=== PATIENT | female | born 1955 | race African-American/Black ===

== ENCOUNTER 2017-12-31 17:18 | Emergency (ER) | payer OTHER ==
[2017-12-31 17:25] VITALS: BP 185/89; PULSE 78; TEMP 98.9; BMI 30.9
[2017-12-31] MEDS ORDERED: ACETAMINOPHEN 325 MG TABLET (FP) PO ONE (18:23)
[2017-12-31] MEDS ORDERED: diazePAM 5 MG TABLET PO ONE (18:23)
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
[2017-12-31] MEDS ORDERED: diazePAM 5 MG TABLET ONE (18:44)
[2017-12-31] MEDS ORDERED: ACETAMINOPHEN 500 MG TABLET (FP) ONE (18:44)
--- NOTE | 2017-12-31 19:20 | PDOC ---
*Physical Exam - Vital Signs Last Vital Signs Temp Pulse Resp BP Pulse Ox 98.9 F 78 18 185/89 100 12/31/17 17:18 12/31/17 17:18 12/31/17 17:18 12/31/17 17:18 12/31/17 17:18 ED Treatment Course - Medications Given in the ED: ED Medications Discontinued Medications Generic Name Dose Route Start Last Admin Trade Name Freq PRN Reason Stop Dose Admin Acetaminophen 1,000 mg 12/31/17 18:23 12/31/17 18:46 Tylenol - PO 12/31/17 18:24 1,000 mg ONCE ONE Administration Diazepam 5 mg 12/31/17 18:23 12/31/17 18:46 Valium - PO 12/31/17 18:24 5 mg ONCE ONE Administration Progress Note - Progress Note Progress Note: Care of this patient received from . Noncontrast head CT and cervical spine CT performed. Noncontrast head CT shows no evidence of intracranial pathology or skull fracture. Cervical spine CT reveals no evidence of cervical spine fracture. However, there is a 4 cm by 2 cm mass posterior to the right thyroid gland, either consistent with thyroid nodule or other acute pathology. Results discussed with the patient. She recalls being told of a thyroid issue in the past; she does not recall other recent imaging study. She is been strongly advised to follow-up with her PMD, Dr. Thomas within the next 5-7 days. Meanwhile, she should avoid strenuous activity involving upper body exertion. Diclofenac 75 mg twice a day to be used as needed (taken with food) prescribed as well as Flexeril 10 mg up to twice a day as needed for muscle spasm. Soft collar will also be provided to be used as needed. *DC/Admit/Observation/Transfer Diagnosis at time of Disposition: Cervical muscle strain Qualifiers: Encounter type: initial encounter Qualified Code(s): S16.1XXA - Strain of muscle, fascia and tendon at neck level, initial encounter - Discharge Dispostion Disposition: HOME Condition at time of disposition: Stable - Prescriptions Prescriptions: Cyclobenzaprine HCl [Flexeril 10 mg] 10 mg PO BID PRN #10 tablet PRN Reason: Muscle Spasms Diclofenac Sodium [Voltaren -] 75 mg PO BID PRN #20 tablet.dr DELVALLE Reason: Moderate Pain - Referrals Referrals: Lobo Thomas MD [Primary Care Provider] - 1 week - Patient Instructions Printed Discharge Instructions: DI for Whiplash Additional Instructions: rest; avoid strenuous activity for the next few days Diclofenac 75mg twice a day as needed for pain(take with food) Flexeril 10mg up to twice a day for muscle spasms; this will make you sleepy Return to ER if you have severe pain or weakness Followup with Dr Thomas within 1 week - Post Discharge Activity
== END 2017-12-31 21:12 | disposition home or self-care (01) ==
LOC: FER 17:18
DX: S16.1XXA Strain of muscle, fascia and tendon at neck level, initial encounter (principal); V43.52XA Car driver injured in collision with other type car in traffic accident, initial encounter; Y93.89 Activity, other specified; Y92.410 Unspecified street and highway as the place of occurrence of the external cause; I10 Essential (primary) hypertension; E11.9 Type 2 diabetes mellitus without complications; E78.5 Hyperlipidemia, unspecified; G89.29 Other chronic pain; M54.5 Low back pain
CPT/HCPCS: 70450-TC; 72125-TC; 99283-25

== ENCOUNTER → 2018-09-16 | Day surgery (SDC) | payer OTHER | LOC: JRADIR 09:37 ==

== ENCOUNTER 2019-03-05 11:25 | Day surgery (SDC) | payer OTHER ==
[2019-03-05 12:15] VITALS: BMI 30.9
[2019-03-05 15:03] VITALS: BP 138/76; PULSE 84; TEMP 98.2
== END 2019-03-05 15:03 | disposition home or self-care (01) ==
LOC: FASU-ENDO 11:25
PROVIDERS: ATTEND Internal Medicine Gastroenterology
PROC: 0DJD8ZZ Inspection of Lower Intestinal Tract, Via Natural or Artificial Opening Endoscopic (ICD-10-PCS; principal; 2019-03-05 13:42)
DX: Z12.11 Encounter for screening for malignant neoplasm of colon (principal); K57.30 Diverticulosis of large intestine without perforation or abscess without bleeding; K64.0 First degree hemorrhoids

== ENCOUNTER 2019-04-23 11:51 | Day surgery (SDC) | payer OTHER ==
[2019-04-15 12:35] VITALS: BMI 32.9
[2019-04-23] MEDS ORDERED: PROPOFOL 20 ML ONE ×2 (12:23)
[2019-04-23 13:20] VITALS: TEMP 98.2
[2019-04-23 13:53] VITALS: BP 158/66; PULSE 80
--- NOTE | 2019-04-25 17:02 | PATH ---
Surgical Pathology Report Patient Name: TUSHAR REDD [facility]. Rec. #: [id number] /Age/Gender: 1955 (Age: 63) / F Account: [id number] Location: [facility] Taken: 04/23/2019 Received: 04/23/2019 Reported: 04/25/2019 Physicians: Merle Martin M.D. Specimen(s) Received A: SECOND PORTION DUODENUM B: GASTRIC ANTRUM C: GE JUNCTION Clinical History Abdominal pain, reflux Postoperative diagnosis: Hiatal hernia, gastritis Final Diagnosis A. SECOND PORTION DUODENUM, BIOPSY: DUODENAL MUCOSA WITH NO SIGNIFICANT PATHOLOGIC CHANGE. NO HISTOLOGIC EVIDENCE OF INTRAEPITHELIAL LYMPHOCYTOSIS. B. GASTRIC ANTRUM, BIOPSY: GASTRIC MUCOSA WITH CHRONIC GASTRITIS AND REACTIVE GASTROPATHY. IMMUNOSTAIN IS NEGATIVE FOR H. PYLORI ORGANISMS. NEGATIVE FOR INTESTINAL METAPLASIA. C. GE JUNCTION, BIOPSY: COLUMNAR MUCOSA WITH INTESTINAL METAPLASIA, MAY REPRESENT JORDAN'S ESOPHAGUS IN THE PROPER CLINICAL SETTING. NO SQUAMOUS EPITHELIUM PRESENT. NEGATIVE FOR DYSPLASIA. Electronically Signed Robinson Espinosa M.D. Gross Description A. Received in formalin, labeled "biopsy second portion of duodenum" is a philip, irregular portion of soft tissue measuring 0.4 cm. in greatest dimension. The specimen is submitted in toto in one cassette. B. Received in formalin, labeled "biopsy gastric antrum" are 2 philip, irregular portions of soft tissue measuring 0.3 and 0.4 cm. in greatest dimension. The specimens are submitted in toto in one cassette. C. Received in formalin, labeled "biopsy GE junction" is a philip, irregular portion of soft tissue measuring 0.4 cm. in greatest dimension. The specimen is submitted in toto in one cassette. /04/24/2019 saudi04/24/2019
== END 2019-04-23 14:05 | disposition home or self-care (01) ==
LOC: FASU-ENDO 11:51
PROVIDERS: ATTEND Internal Medicine Gastroenterology
PROC: 0DB68ZX Excision of Stomach, Via Natural or Artificial Opening Endoscopic, Diagnostic (ICD-10-PCS; 2019-04-23)
PROC: 0DB48ZX Excision of Esophagogastric Junction, Via Natural or Artificial Opening Endoscopic, Diagnostic (ICD-10-PCS; 2019-04-23)
PROC: 0DB98ZX Excision of Duodenum, Via Natural or Artificial Opening Endoscopic, Diagnostic (ICD-10-PCS; principal; 2019-04-23 13:00)
DX: K29.50 Unspecified chronic gastritis without bleeding (principal); K31.9 Disease of stomach and duodenum, unspecified; K44.9 Diaphragmatic hernia without obstruction or gangrene; R10.13 Epigastric pain
CPT/HCPCS: 88305-TC; 88342-TC

== ENCOUNTER 2019-06-11 09:18 | Day surgery (SDC) | payer OTHER ==
[2019-06-04 15:04] VITALS: BMI 32.9
[2019-06-11] MEDS ORDERED: PROPOFOL 20 ML ONE ×2 (09:46)
[2019-06-11] MEDS ORDERED: LIDOCAINE HCL/PF 2% SDV 5ML VIAL ONE (09:46)
[2019-06-11 12:07] VITALS: TEMP 98.4
[2019-06-11 16:56] VITALS: BP 123/69; PULSE 91
--- NOTE | 2019-06-13 16:45 | PATH ---
Surgical Pathology Report Patient Name: TUSHAR REDD [facility]. Rec. #: [id number] /Age/Gender: 1955 (Age: 63) / F Account: [id number] Location: [facility] Taken: 06/11/2019 Received: 06/11/2019 Reported: 06/13/2019 Physicians: Merle Martin M.D. Specimen(s) Received A: ANTRUM B: ESOPHAGUS Clinical History History of Hughes's Postoperative diagnosis: Hughes's esophagus, hiatal hernia, gastritis Final Diagnosis A. GASTRIC ANTRUM, BIOPSY: GASTRIC MUCOSA WITH CHRONIC GASTRITIS. IMMUNOSTAIN FOR H. PYLORI IS NEGATIVE. INTESTINAL METAPLASIA IDENTIFIED. NEGATIVE FOR DYSPLASIA. B. ESOPHAGUS, BIOPSY: GLANDULAR MUCOSA WITH CHRONIC INFLAMMATION AND INTESTINAL METAPLASIA. NEGATIVE FOR DYSPLASIA. Comment: No squamous epithelium present. Clinical correlation with endoscopic findings is recommended. Electronically Signed Robinson Espinosa M.D. Gross Description A. Received in formalin, labeled "biopsy gastric antrum" is a philip, irregular portion of soft tissue measuring 0.4 cm. in greatest dimension. The specimen is submitted in toto in one cassette. B. Received in formalin, labeled "biopsy esophagus" are 7 philip, irregular portions of soft tissue ranging from 0.1-0.4 cm. in greatest dimension. The specimens are submitted in toto in one cassette. 06/12/2019 [facility]06/12/2019
== END 2019-06-11 11:55 | disposition home or self-care (01) ==
LOC: FASU-ENDO 09:18
PROVIDERS: ATTEND Internal Medicine Gastroenterology
PROC: 0DB78ZX Excision of Stomach, Pylorus, Via Natural or Artificial Opening Endoscopic, Diagnostic (ICD-10-PCS; 2019-06-11)
PROC: 0DB18ZX Excision of Upper Esophagus, Via Natural or Artificial Opening Endoscopic, Diagnostic (ICD-10-PCS; 2019-06-11)
PROC: 0DB28ZX Excision of Middle Esophagus, Via Natural or Artificial Opening Endoscopic, Diagnostic (ICD-10-PCS; 2019-06-11)
PROC: 0DB38ZX Excision of Lower Esophagus, Via Natural or Artificial Opening Endoscopic, Diagnostic (ICD-10-PCS; 2019-06-11)
PROC: 0DB48ZX Excision of Esophagogastric Junction, Via Natural or Artificial Opening Endoscopic, Diagnostic (ICD-10-PCS; principal; 2019-06-11 10:32)
DX: Z09 Encounter for follow-up examination after completed treatment for conditions other than malignant neoplasm (principal); Z87.19 Personal history of other diseases of the digestive system; K29.50 Unspecified chronic gastritis without bleeding; K44.9 Diaphragmatic hernia without obstruction or gangrene; K20.9 Esophagitis, unspecified
CPT/HCPCS: 88305-TC; 88342-TC

== ENCOUNTER 2024-02-29 11:43 | Observation (INO) | payer OTHER ==
[2024-02-29 11:53] VITALS: RESP 18; BMI 84.6
[2024-02-29 12:46] LABS: HEMOGLOBIN 13.9 G/dL (10.7-15.3); MCH 29.7 pg (25.7-33.7); MCHC 33.8 g/dl (32.0-36.0); MEAN CELL VOLUME 87.9 fl (80-96); MEAN PLT VOLUME 7.9 fl (7.5-11.1); PLATELET COUNT 305.1 10^3/uL (134-434); RBC 4.67 10^6/uL (3.60-5.2); RDW 13.8 % (11.6-15.6); WHITE BLOOD COUNT 5.7 10^3/uL (4.0-10.8)
[2024-02-29 13:09] LABS: ALBUMIN 4.4 g/dl (3.4-5.0); BILIRUBIN,TOTAL 0.4 mg/dl (0.2-1); CALCIUM 10.6 mg/dl (8.5-10.1); CREATININE 0.7 mg/dl (0.6-1.3); POTASSIUM 3.5 mmol/L (3.5-5.1); TOT PROT 7.3 g/dl (6.4-8.2)
[2024-02-29 13:35] LABS: PLATELET ESTIMATE ADEQUATE
[2024-02-29 15:52] LABS: HIV INTERPRETATION NEGATIVE (NEGATIVE)
[2024-02-29] MEDS ORDERED: ACETAMINOPHEN 325 MG TABLET (FP) PO PRN (18:24)
[2024-02-29] MEDS: FAMOTIDINE 20 MG TABLET PO SCH (21:32)
[2024-02-29] MEDS: PANTOPRAZOLE 40 MG TABLET PO SCH (21:32)
[2024-02-29] MEDS: TIMOLOL 0.25% OPHTHALMIC SOL 5 ML BOTTLE OU SCH (22:59)
[2024-03-01 07:10] VITALS: TEMP 98.4
[2024-03-01 08:53] LABS: HEMATOCRIT 38.3 % (32.4-45.2); HEMOGLOBIN 12.7 G/dL (10.7-15.3); MCH 29.2 pg (25.7-33.7); MCHC 33.1 g/dl (32.0-36.0); MEAN CELL VOLUME 88.3 fl (80-96); PLATELET COUNT 285.4 10^3/uL (134-434); RBC 4.34 10^6/uL (3.60-5.2); RDW 13.6 % (11.6-15.6); WHITE BLOOD COUNT 4.2 10^3/uL (4.0-10.8)
[2024-03-01 09:26] LABS: CALCIUM 10.3 mg/dl (8.5-10.1); CREATININE 0.7 mg/dl (0.6-1.3)
[2024-03-01 09:31] VITALS: BP 142/66; PULSE 82
[2024-03-01] MEDS: NIFEdipine E.R. 30 MG TABLET PO SCH (09:40)
[2024-03-01] MEDS: ENOXAPARIN NA (PORCINE) 40 MG/0.4 ML DISP.SYRIN SQ SCH (09:40)
[2024-03-01] MEDS: ASPIRIN COATED 81 MG TABLET.EC PO SCH (09:40)
[2024-03-01] MEDS: LOSARTAN 50MG/HCTZ 12.5MG 1 TAB PO SCH (09:40)
[2024-03-01] MEDS: BRIMONIDINE TARTRATE 0.15% OPHTHALMIC 5 ML BOTTLE OU SCH (10:27)
[2024-03-01 12:32] LABS: PLATELET ESTIMATE ADEQUATE
== END 2024-03-01 13:08 | disposition home or self-care (01) ==
LOC: FER 11:43 → FM/S 14:41
PROVIDERS: ADMIT Internal Medicine; ATTEND Internal Medicine
PROC: 3E023GC Introduction of Other Therapeutic Substance into Muscle, Percutaneous Approach (ICD-10-PCS; principal; 2024-02-29)
DX: R07.89 Other chest pain (principal); K21.9 Gastro-esophageal reflux disease without esophagitis; E78.00 Pure hypercholesterolemia, unspecified; R73.03 Prediabetes; M54.9 Dorsalgia, unspecified; I10 Essential (primary) hypertension; G89.29 Other chronic pain; M25.512 Pain in left shoulder; K59.00 Constipation, unspecified; Z88.8 Allergy status to other drugs, medicaments and biological substances
CPT/HCPCS: 36415; 70450-TC; 71045-TC-FY; 80048; 80053; 82962; 84484; 85025; 85027; 86803; 87389; 93005; 96372; 99285-25; G0378